=== PATIENT | male | born 1970 ===

== ENCOUNTER 2021-06-16 14:18 | Emergency (ER) | payer OTHER, SELFPAY ==
[2021-06-16 14:35] VITALS: BP 189/90; PULSE 68; RESP 24; TEMP 36.5; O2SAT 99
--- NOTE | 2021-06-16 14:53 | DI.RAD.S_ITS ---
PROCEDURE: XR CHEST 1V INDICATIONS: chest pain TECHNIQUE: One view of the chest was acquired. COMPARISON: None. FINDINGS: Surgical changes and devices: None. Lungs and pleura: There is a small left pleural effusion. There are bibasilar atelectasis. No pneumothorax. Mediastinum: Mediastinal contours appear normal. Heart size is moderate increased.. Bones and chest wall: No suspicious bony lesions. Overlying soft tissues appear unremarkable. IMPRESSION: 1. Small left pleural effusion. 2. Bibasilar atelectasis. 3. Moderate cardiomegaly. Dictated by: Kathya Gomez M.D. on 06/16/2021 at 15:28 Approved by: Kathya Gomez M.D. on 06/16/2021 at 15:42
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
[2021-06-16 15:54] LABS: Add Manual Diff / Slide Review NO; Basophils Absolute Auto 100 /uL (0-100); Basophils Percent Auto 0.7 % (0-2); Eosinophils Absolute Auto 300 /uL (0-450); Hemoglobin 9.1 g/dL (13.5-17.5); Lymphocytes Absolute Auto 1600 /uL (1100-4500); Lymphocytes Percent Auto 19.8 % (25-40); Mean Corpuscular HGB Conc 33.7 % (30-36); Mean Corpuscular Hemoglobin 28.4 PG (26-34); Mean Corpuscular Volume 84.5 fL (80-100); Monocytes Absolute Auto 1000 /uL (0-900); Monocytes Percent Auto 12.9 % (3-14); Neutrophils Absolute Auto 5000 /uL (1500-7000); Neutrophils Percent Auto 62.6 % (50-75); Platelet Count 155 X10^3/uL (150-400); Red Cell Distribution Width 16.4 % (11.6-14.8)
[2021-06-16 16:07] LABS: Alanine Aminotransferase 22 IU/L (<50); Albumin 3.3 g/dL (3.5-5.0); Albumin Globulin Ratio 0.8 (1.0-2.8); Alkaline Phosphatase 226 U/L (38-126); Aspartate Aminotransferase 30 IU/L (17-59); BUN Creatinine Ratio 16.2 (6-22); Bilirubin Total 0.8 mg/dL (0.2-1.3); Blood Urea Nitrogen 59 mg/dL (9-20); Calcium 8.5 mg/dL (8.4-10.2); Carbon Dioxide 27 mmol/L (22-32); Chloride 106 mmol/L (98-107); Creatine Kinase 125 U/L (55-170); Estimated Glomerular Filt Rate 17.7 mL/min (>60); Globulin 4.1 g/dL (1.7-4.1); Glucose 125 mg/dL (70-100); HEMOLYSIS < 15 (0-50); Lipase 134 U/L (23-300); Potassium 3.7 mmol/L (3.4-5.1); Sodium 139 mmol/L (137-145); Total Protein 7.4 g/dL (6.3-8.2)
[2021-06-16 16:18] LABS: Troponin I 0.036 ng/mL (0.01-0.034)
[2021-06-16 16:22] LABS: CKMB % Relative Index 2.7 % (1.5-5.0); Creatine Kinase MB 3.35 ng/mL (<2.37)
[2021-06-16] MEDS: ACETAMINOPHEN 325 MG TABLET 975 MG PO (16:27)
[2021-06-16 16:30] VITALS: PULSE 68; RESP 18; O2SAT 99
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
[2021-06-16] MEDS: CYCLOBENZAPRINE 10 MG TABLET PO (17:11)
[2021-06-16] MEDS: ASPIRIN 81 MG CHEW TAB (17:37)
--- NOTE | 2021-06-16 18:38 | PC.NURSE ---
Pt declined IV. IV removed after blood draw
[2021-06-16 19:17] VITALS: BP 158/80; PULSE 65; RESP 20; O2SAT 99
[2021-06-16 19:19] LABS: Troponin I 0.036 ng/mL (0.01-0.034)
--- NOTE | 2021-06-16 20:35 | PC.NURSE ---
Patient signed discharge paperwork and agrees with RN that he is declining admission, I want to follow up with my doctors
--- NOTE | 2021-06-16 20:35 | PC.NURSE ---
Patient declined last set of vitals. Went over discharge closely with patient.
== END 2021-06-16 20:35 | disposition left against medical advice (07) ==
PROVIDERS: Emergency Medicine; Emergency Provider Student in an Organized Health Care Education/Training Program
DX: S16.1XXA Strain of muscle, fascia and tendon at neck level, initial encounter (principal); M54.6 Pain in thoracic spine; R07.9 Chest pain, unspecified; R55 Syncope and collapse; R77.8 Other specified abnormalities of plasma proteins; V89.2XXA Person injured in unspecified motor-vehicle accident, traffic, initial encounter
CPT/HCPCS: 36415; 70450; 71045; 72125; 73030; 80053; 82550; 82553; 83690; 84484; 85025; 93005; 99284